=== PATIENT | male | born 1955 | race Caucasian/White ===

== ENCOUNTER 2018-03-06 13:35 | Inpatient (IN) ==
[2018-03-06] MEDS ORDERED: 0.9 % Sodium Chloride 1,000 ML IVC ONE ×2 (14:35→15:24)
[2018-03-06] MEDS ORDERED: Piperacillin/Tazobactam 3.375 GM in Water for inj. (sterile) 20 ML 20 ML IVP ONE (14:35)
[2018-03-06] MEDS ORDERED: methylPREDNISolone 125 MG/2 ML VIAL IVP ONE (14:40)
[2018-03-06] MEDS ORDERED: Ipratropium/Albuterol Neb 3 ML IH ONE (14:40)
--- NOTE | 2018-03-06 15:19 | Emergency Department Note ---
Disposition Clinical Impression: Acute exacerbation of chronic obstructive airways disease Disposition: Admitted As Inpatient Condition: Fair Time of Disposition: 21:08 General Adult HPI - General Chief complaint: ED Shortness of Breath/Dyspnea Stated complaint: difficulty breathing Time Seen by Provider: 03/06/18 13:46 Source: patient, family, EMS Limitations: no limitations Nursing Notes Reviewed: Yes Vital Signs Reviewed: Yes - History of Present Illness HPI Narrative: Male patient with a history of COPD presenting to the emergency department with a one-week history of productive cough. Dyspnea on exertion that is getting worse. Was placed on azithromycin for presumed pneumonia. Has been getting worse. He was placed on Levaquin and is not getting any better. He does report that his dyspnea on exertion is getting worse. He generally uses an incentive spirometer at home and states he can generally get into the [id number] range however he can not make it to 500 at this time. Currently uses albuterol for his COPD however he has been using more frequently than normal. Denies any chest pain. Does report a low-grade fever but reports it was only 99. No swelling to any of his extremities. He does report a productive cough with a clear sputum. He has not been on any steroids for a long period of time. Pain Scale: 0 - Related Data Home Medications Medication Instructions Recorded Confirmed Albuterol Neb [Proventil Neb] 2.5 mg IH Q4HR PRN 03/06/18 03/06/18 Albuterol Sulfate [Albuterol 2 puff IH Q4HR PRN 03/06/18 03/06/18 Inhaler] Ergocalciferol (VITAMIN D2) 50,000 unit PO QWEEK 03/06/18 03/06/18 [Vitamin D2] Fluticasone Propionate Nasal 1 spr NS DAILY 03/06/18 03/06/18 [Flonase] Fluticasone/Salmeterol [Advair 1 puff IH BID 03/06/18 03/06/18 250-50 Diskus] Ipratropium [place] 1 spr NS DAILY 03/06/18 03/06/18 MetroNIDAZOLE [Metrogel] 1 appl TP DAILY 03/06/18 03/06/18 Montelukast [Singulair] 10 mg PO HS 03/06/18 03/06/18 Omeprazole [PriLOSEC] 40 mg PO DAILY 03/06/18 03/06/18 Triamterene/HCTZ 37.5/25mg 1 tab PO DAILY 03/06/18 03/06/18 [Dyazide] Previous Rx's Medication Instructions Recorded levoFLOXacin [Levaquin] 500 mg PO DAILY #14 tablet 03/04/18 Allergies Allergy/AdvReac Type Severity Reaction Status Date / Time No Known Allergies Allergy Verified 03/06/18 17:07 All systems ED: reviewed and negative except as stated. Review of Systems: As Per HPI Constitutional: Reports: weakness. Denies: chills Cardiovascular: Reports: dyspnea on exertion. Denies: chest pain, palpitations , syncope Gastrointestinal: Reports: diarrhea. Denies: abdominal pain, nausea, vomiting Genitourinary: Denies: urgency, dysuria, frequency, hematuria Musculoskeletal: Denies: back pain, neck pain Integumentary: Denies: rash Neurological: Reports: weakness Past Medical History - Past Medical History Attestation: Yes The following information was validated with the patient. Source: patient Medical history: Reports: asthma, COPD, GERD, other Surgical history: Reports: orthopedic, other Psychiatric history: Reports: no psych history - Social History Smoking Status: Never smoker Smokeless Tobacco Status: No Alcohol use: Reports: occasionally Drug use: Reports: none Physical Exam - General Limitations: no limitations General appearance: alert, in no apparent distress - Head Head exam: atraumatic, normocephalic, normal inspection - Eye Eye exam: Present: normal appearance, PERRL, EOMI - ENT ENT exam: normal exam, normal oropharynx, mucous membranes moist - Neck Neck exam: Present: normal inspection, full ROM, trachea midline - Chest Chest inspection: Present: normal inspection, symmetric chest wall rise - Respiratory Respiratory exam: Present: respiratory distress (Patient is tachypneic.), other (Decreased lung sounds throughout) - Cardiovascular Cardiovascular exam: Present: tachycardia, normal heart sounds - Abdominal Exam Abdominal exam: Present: soft, Non-Tender. Absent: tenderness, distention, guarding, rebound, rigidity, organomegaly, Stevens's sign, Rovsing's sign, tenderness at McBurney's Point - Extremities Exam Extremities exam: Present: normal inspection, full ROM, normal capillary refill. Absent: tenderness, pedal edema, calf tenderness - Back Exam Back exam: Present: normal inspection, full ROM. Absent: tenderness - Neurological Exam Neurological exam: Present: alert, oriented X3 - Psychiatric Psychiatric exam: Present: normal affect, normal mood - Skin Skin exam: Present: warm, dry, intact, normal color. Absent: rash, cyanosis, diaphoresis Course Course Narrative: Patient does appear dyspneic on exam. He is tachypneic as well as tachycardic. He does meet SIRS criteria. We will place patient on IV vancomycin and Zosyn for failed outpatient therapy of pneumonia. We will also get a basic lab workup on patient provide him with IV fluids. He has no signs of edema to his extremities. We will provide him with a DuoNeb for his decreased lung sounds throughout. He does have upper airway secretions on auscultation. I do not appreciate any overt rhonchorous area. We will likely admitted to the hospital for failed outpatient therapy of pneumonia. Vital Signs Temperature 98.6 F 03/06/18 13:50 Pulse Rate 101 03/06/18 13:50 Respiratory Rate 24 03/06/18 13:50 Blood Pressure 149/89 03/06/18 13:50 O2 Sat by Pulse Oximetry 96 03/06/18 13:50 Temperature 98.1 F 03/06/18 19:01 Pulse Rate 103 03/06/18 19:01 Respiratory Rate 16 03/06/18 19:01 Blood Pressure 154/89 03/06/18 19:01 O2 Sat by Pulse Oximetry 90 03/06/18 19:01 Oxygen Delivery Oxygen Delivery Room Air Medical Decision Making - Medical Records Medical records reviewed: Yes I reviewed the patient's medical records. - Lab Data Lab results reviewed: Yes I reviewed the patient's lab results. Result diagrams: 03/06/18 14:35 03/06/18 14:35 Lab Results 03/06/18 03/06/18 03/06/18 Range/Units 14:35 14:35 14:35 WBC 6.3 (4.3-11.1) K/mcL RBC 5.03 (4.19-5.50) M/mcL Hgb 15.1 (12.9-16.9) g/dL Hct 46.6 (37.5-50.1) % MCV 92.6 (83.0-100.0) fL MCH 30.0 (28.0-33.3) pg MCHC 32.4 (31.6-35.5) g/dL RDW 12.6 (11.5-14.5) % Plt Count 141 (140-400) K/mcL MPV 9.9 (9.4-12.4) fL Immature Gran % 0.3 (0-4) % Seg Neutrophils % 72.3 % Lymphocytes % 14.6 % Monocytes % 10.0 % Eosinophils % 2.5 % Basophils % 0.3 % Neutrophils # 4.6 (1.6-8.9) K/mcL Lymphocytes # 0.9 (0.6-4.6) K/mcL Monocytes # 0.6 (0.0-1.3) K/mcL Eosinophils # 0.2 (0.0-0.6) K/mcL Basophils # 0.0 (0.0-0.2) K/mcL PT 11.7 (9.4-12.1) Seconds INR 1.0 APTT 30.1 (26.0-36.0) Seconds Sodium 136 (136-145) mEq/L Potassium 4.4 (3.5-5.1) mEq/L Chloride 98 (98-107) mEq/L Carbon Dioxide 22 L (23-29) mEq/L BUN 8 (8-23) mg/dL Creatinine 0.43 L (0.70-1.30) mg/dL Est GFR ( Amer) > 60 (> 60) Est GFR (Non-Af Amer) > 60 (> 60) BUN/Creatinine Ratio 19 (6-26) Glucose 71 (70-105) mg/dL Calculated Osmolality 279 L (280-300) Lactic Acid (0.5-2.2) mmol/L Calcium 9.6 (8.6-10.3) mg/dL Phosphorus 3.1 (2.7-4.5) mg/dL Magnesium 1.7 (1.6-2.6) mg/dL Total Bilirubin 0.6 (0.3-1.0) mg/dL Direct Bilirubin 0.1 (0.0-0.2) mg/dL Indirect Bilirubin 0.5 (0.0-1.2) mg/dL AST 62 H (13-39) Units/L ALT 29 (7-52) Units/L Alkaline Phosphatase 58 (34-104) Units/L Troponin I < 0.03 (< 0.04) ng/mL Serum Total Protein 7.6 (6.4-8.9) g/dL Albumin 4.0 (3.5-5.7) g/dL Globulin 3.6 H (2.4-3.5) g/dL Albumin/Globulin Ratio 1.1 (1.1-2.2) Urine Color (Yellow) Urine Clarity (Clear) Urine pH (5.0-8.0) pH Units Ur Specific [place] (1.010-1.025) Urine Protein (Neg-Trace) mg/dL Urine Glucose (UA) (Normal) mg/dL Urine Ketones (Negative) mg/dL Urine Blood (Negative) Urine Nitrite (Negative) Urine Bilirubin (Negative) Urine Urobilinogen (Normal) mg/dL Ur Leukocyte Esterase (Negative) Urine Microscopic RBC (0-3) per hpf Urine Microscopic WBC (0-3) per hpf Ur Squamous Epith Cells (None-Few) per lpf Urine Bacteria (None-Few) per hpf Hyaline Casts (None-Few) per lpf Ur Culture Indicated? (NO) 03/06/18 03/06/18 Range/Units 15:11 15:30 WBC (4.3-11.1) K/mcL RBC (4.19-5.50) M/mcL Hgb (12.9-16.9) g/dL Hct (37.5-50.1) % MCV (83.0-100.0) fL MCH (28.0-33.3) pg MCHC (31.6-35.5) g/dL RDW (11.5-14.5) % Plt Count (140-400) K/mcL MPV (9.4-12.4) fL Immature Gran % (0-4) % Seg Neutrophils % % Lymphocytes % % Monocytes % % Eosinophils % % Basophils % % Neutrophils # (1.6-8.9) K/mcL Lymphocytes # (0.6-4.6) K/mcL Monocytes # (0.0-1.3) K/mcL Eosinophils # (0.0-0.6) K/mcL Basophils # (0.0-0.2) K/mcL PT (9.4-12.1) Seconds INR APTT (26.0-36.0) Seconds Sodium (136-145) mEq/L Potassium (3.5-5.1) mEq/L Chloride (98-107) mEq/L Carbon Dioxide (23-29) mEq/L BUN (8-23) mg/dL Creatinine (0.70-1.30) mg/dL Est GFR ( Amer) (> 60) Est GFR (Non-Af Amer) (> 60) BUN/Creatinine Ratio (6-26) Glucose (70-105) mg/dL Calculated Osmolality (280-300) Lactic Acid 1.4 (0.5-2.2) mmol/L Calcium (8.6-10.3) mg/dL Phosphorus (2.7-4.5) mg/dL Magnesium (1.6-2.6) mg/dL Total Bilirubin (0.3-1.0) mg/dL Direct Bilirubin (0.0-0.2) mg/dL Indirect Bilirubin (0.0-1.2) mg/dL AST (13-39) Units/L ALT (7-52) Units/L Alkaline Phosphatase (34-104) Units/L Troponin I (< 0.04) ng/mL Serum Total Protein (6.4-8.9) g/dL Albumin (3.5-5.7) g/dL Globulin (2.4-3.5) g/dL Albumin/Globulin Ratio (1.1-2.2) Urine Color Yellow (Yellow) Urine Clarity Cloudy A (Clear) Urine pH 5.5 (5.0-8.0) pH Units Ur Specific [place] 1.018 (1.010-1.025) Urine Protein Trace (Neg-Trace) mg/dL Urine Glucose (UA) Normal (Normal) mg/dL Urine Ketones >=160 H (Negative) mg/dL Urine Blood Negative (Negative) Urine Nitrite Negative (Negative) Urine Bilirubin Negative (Negative) Urine Urobilinogen Normal (Normal) mg/dL Ur Leukocyte Esterase Negative (Negative) Urine Microscopic RBC 3-5 H (0-3) per hpf Urine Microscopic WBC 0-3 (0-3) per hpf Ur Squamous Epith Cells Moderate H (None-Few) per lpf Urine Bacteria None Seen (None-Few) per hpf Hyaline Casts None Seen (None-Few) per lpf Ur Culture Indicated? NO (NO) - Radiology Data Radiology results reviewed: Yes I reviewed the patient's radiology results. Chest X-Ray 03/06/18 14:36 IMPRESSION: Stable portable study. D/ / Radha Bhatt Cha, MD / Radha Bhatt Cha, MD Interpreting Provider: Radha Bhatt Cha, MD - EKG Data EKG #1 EKG attestation: Yes I reviewed and interpreted this EKG. EKG results narrative: Normal sinus rhythm at a rate of 99. RI interval is 151. QRS duration is 82. QT is 331. QTC is 425. No signs of acute ischemia. No significant change from previous EKG dated 04/12/2014. Attestation Statement - Attestation Attestation: I examined this patient and my medical decision-making was reviewed with the Resident Physician, Dr. Kunz. I agree with the documented findings, disposition and treatment plan as described except to the extent set forth below. Patient is a 62-year-old white male with a history of COPD non-oxygen dependent who presents the emergency department with a one-week history of nasal congestion productive cough with yellowish sputum and gradually worsening shortness of breath. 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 He continued this and then was seen at the urgent care on Tuesday stating his symptoms were worsening and was prescribed Levaquin. Patient by today was having no improvement feeling worsening with shortness of breath gradually is weakness and fatigue. Patient denies a chest pain pressure or heaviness, no posttussive emesis or hemoptysis. I agree with patient's physical exam findings as documented. Patient's vital signs are stable on arrival and he has some mild conversational dyspnea but not hypoxic on room air. Patient had breathing treatments and steroids initiated IV as well as blood culture laboratory evaluation and chest x-ray. Patient was started on empiric anabiotic therapy for outpatient treatment failure after 2 rounds of antibiotics. Patient denies any recent travel or concerning exposures. At this time we will admit the patient for acute exacerbation of COPD we are still awaiting a chest x-ray to rule out possible pneumonia. Chest x-ray result is negative for any infiltrate or abnormal. Patient remains hemodynamically stable at this time and case was discussed with the hospitalist who accepted patient for admission.
[2018-03-06 15:27] LABS: Basophils % 0.3 %; Eosinophils # 0.2 K/mcL (0.0-0.6); Eosinophils % 2.5 %; Hematocrit 46.6 % (37.5-50.1); Hemoglobin 15.1 g/dL (12.9-16.9); Immature Granulocytes % 0.3 % (0-4); Lymphocytes # 0.9 K/mcL (0.6-4.6); Lymphocytes % 14.6 %; Mean Corpuscular HGB Conc 32.4 g/dL (31.6-35.5); Mean Corpuscular Volume 92.6 fL (83.0-100.0); Mean Platelet Volume 9.9 fL (9.4-12.4); Monocytes # 0.6 K/mcL (0.0-1.3); Neutrophils # 4.6 K/mcL (1.6-8.9); Platelet Count 141 K/mcL (140-400); Red Blood Count 5.03 M/mcL (4.19-5.50); Red Cell Distribution Width 12.6 % (11.5-14.5); Segmented Neutrophils % 72.3 %
[2018-03-06 15:33] LABS: Prothrombin Time 11.7 Seconds (9.4-12.1)
[2018-03-06 15:36] LABS: Activated Partial Thrombo Time 30.1 Seconds (26.0-36.0)
[2018-03-06] MEDS ORDERED: Piperacillin/Tazobactam 3.375 GM VIAL ONE (15:40)
[2018-03-06 15:41] LABS: Bilirubin,Urine Negative (Negative); Blood,Urine Negative (Negative); Clarity,Urine Cloudy (Clear); Color,Urine Yellow (Yellow); Glucose,Urine (UA) Normal (Normal); Ketones,Urine >=160 mg/dL (Negative); Leukocyte Esterase,Urine Negative (Negative); Nitrite,Urine Negative (Negative); PH,Urine 5.5 pH Units (5.0-8.0); Protein,Urine Trace mg/dL (Neg-Trace); Specific Gravity,Urine 1.018 (1.010-1.025); Urobilinogen,Urine Normal (Normal)
[2018-03-06] MEDS ORDERED: 0.9 % Sodium Chloride Mini Bag 100 ML ONE (15:41)
[2018-03-06 15:44] LABS: Bacteria,Urine None Seen per hpf (None-Few); Hyaline Casts,Urine None Seen per lpf (None-Few); Squamous Epithelial Cell,Urine Moderate per lpf (None-Few); WBC,Urine 0-3 per hpf (0-3)
[2018-03-06 15:47] LABS: Troponin I < 0.03 ng/mL (< 0.04)
[2018-03-06 15:48] LABS: Alanine Aminotransferase 29 Units/L (7-52); Albumin/Globulin Ratio 1.1 (1.1-2.2); Alkaline Phosphatase 58 Units/L (34-104); Aspartate Amino Transferase 62 Units/L (13-39); BUN/Creatinine Ratio 19 (6-26); Bilirubin,Direct 0.1 mg/dL (0.0-0.2); Bilirubin,Indirect 0.5 mg/dL (0.0-1.2); Bilirubin,Total 0.6 mg/dL (0.3-1.0); Blood Urea Nitrogen 8 mg/dL (8-23); Calcium 9.6 mg/dL (8.6-10.3); Carbon Dioxide 22 mEq/L (23-29); Chloride 98 mEq/L (98-107); Globulin 3.6 g/dL (2.4-3.5); Glucose 71 mg/dL (70-105); Magnesium 1.7 mg/dL (1.6-2.6); Osmolality,Calculated 279 (280-300); Phosphorous 3.1 mg/dL (2.7-4.5); Potassium 4.4 mEq/L (3.5-5.1); Sodium 136 mEq/L (136-145); Total Protein 7.6 g/dL (6.4-8.9); eGFR For Non-African Americans > 60 (> 60)
[2018-03-06] MEDS ORDERED: Acetaminophen 325 MG TABLET PO PRN (17:52)
[2018-03-06] MEDS ORDERED: Albuterol 2.5 MG/3 ML NEBULIZER IH PRN (17:53)
[2018-03-06] MEDS ORDERED: Naloxone 0.4 MG/ML INJ IVP PRN (17:54)
[2018-03-06] MEDS ORDERED: Azithromycin 500 MG in D5% in Water 250 ML IVPB SCH (18:00)
--- NOTE | 2018-03-06 18:06 | Internal Med History&Physical ---
Date of Encounter: 03/06/18 Time of Encounter: 18:02 Internal Medicine - H&P: HPI Chief complaint: Shortness of Breath Admitted From: Home Plans for Post Hospital Care: Home History of present illness: Mr. Rangel is a 62 year old male who presents to the emergency department with chief complaint of shortness of breath. Patient states that for the past several days he has been feeling short of breath and developing a productive cough. The patient was started on azithromycin initially as out patient and did not have resolution of symptoms. The patient then visited an urgent care where chest x-ray was performed with questionable pneumonia and the patient was given Levaquin. The patient states that he briefly improved at that point however symptoms worsened last night and this morning and the patient's shortness of breath distress likely worse. Patient states that his cough and sputum production is increasing. Patient states that this morning he was so short of breath he could not catch his breath or move around which prompted them to call the emergency services. In the emergency department the patient was given IV steroids as well as IV antibiotics Empirically for pneumonia and presumed copd exacerbation. The patient's symptoms did improve however he remains somewhat short of breath. Patient and state that every year around this time he developed severe pneumonia frequently requiring hospitalization. They state that this feels very similar to prior episodes. Patient denies any recent travel or sick contacts. Patient denies any chest pain, abdominal pain, nausea, vomiting, diarrhea. Patient denies any objective fevers but feels very cold recently. Patient denies any neck pain vision disturbances or headache. Patient will be admitted for acute exacerbation of COPD as well as pneumonia with failed outpatient treatment. Past Med Surg Social Fam HX - Past Medical History Medical history: asthma, COPD, GERD, other Additional medical history: DISH (bone calcifications develop along ligaments, joints), hiatal hernia Psychiatric history: no psych history - Past Surgical History Surgical History: orthopedic, other Additional surgical history: achilles tendon (right) wrist (left), back surgeries (lumbar) - Social History Smoking Status: Never smoker Smokeless Tobacco Status: No Alcohol use: occasionally Drug use: none Internal Medicine - H&P: Meds levoFLOXacin [Levaquin] 500 mg PO DAILY #14 tablet 03/04/18 [Rx] Albuterol Neb [Proventil Neb] 2.5 mg IH Q4HR PRN 03/06/18 [History] Albuterol Sulfate [Albuterol Inhaler] 2 puff IH Q4HR PRN 03/06/18 [History] Ergocalciferol (VITAMIN D2) [Vitamin D2] 50,000 unit PO QWEEK 03/06/18 [History] Fluticasone Propionate Nasal [Flonase] 1 spr NS DAILY 03/06/18 [History] Fluticasone/Salmeterol [Advair 250-50 Diskus] 1 puff IH BID 03/06/18 [History] Ipratropium [place] 1 spr NS DAILY 03/06/18 [History] MetroNIDAZOLE [Metrogel] 1 appl TP DAILY 03/06/18 [History] Montelukast [Singulair] 10 mg PO HS 03/06/18 [History] Omeprazole [PriLOSEC] 40 mg PO DAILY 03/06/18 [History] Triamterene/HCTZ 37.5/25mg [Dyazide] 1 tab PO DAILY 03/06/18 [History] 3 Allergy/AdvReac Type Severity Reaction Status Date / Time No Known Allergies Allergy Verified 03/06/18 17:07 All Systems PM: A 10-system review of systems was performed and is negative for pertinent findings except as documented above in the HPI. Review of systems: 10 point review of systems is obtained and is otherwise negative other than described in history of present illness - Constitutional Vitals: Temp Pulse Resp BP Pulse Ox 98.6 F 94 22 141/80 95 03/06/18 13:50 03/06/18 16:58 03/06/18 16:58 03/06/18 16:58 03/06/18 16:58 Exam: Constitutional: No acute distress, Alert Psych: AAO x 3 HEENT: NCAT, EOMI Neck: supple, no JVD Cardio: mildly tachycardic in 90s, +s1s2, no murmurs/rubs/gallops, no JVD Resp: inspiratory and expiratory wheezing with bilateral ronchi worse in right lower lung tineo Abd: soft, non tender/non distended, positive bowel sounds, no gaurding/reboud/ ridgitity Extremities: no clubbing/cyanosis/edema appreciated Neuro: no focal deficits appreciated Lymph: no cervical/supraclavicular adenopahty apprecitated Internal Med - H&P Results - Labs CBC & Chem 7: 03/06/18 14:35 03/06/18 14:35 - Assessment and plan (1) Community acquired bacterial pneumonia Current Visit: Yes Status: Acute Assessment and plan: -suspect bacterial pneumonia depsite the lack of clear consolidation on radiograph -initial improvement with outpatient antibiotics with supsequent worsening -azithromycin for atypical coverage -zosyn for escalation of outpatient treatment -received one dose of vanco in ED; dobut need to continue unless clinical condition worsens -obtain sputum sample -check urine legionella and strep pneumo antigen -check RIP -incentive spirometer -pt mildly tachycardic likely 2/2 infection with respiratory distress; doubt PE currently however if pt does not improve will consider CTA to eval for consolidation and rule out PE (2) Acute exacerbation of chronic obstructive pulmonary disease (COPD) Current Visit: Yes Status: Acute Assessment and plan: -Hx of well controlled copd however now with worsening shortness of breath with extensive wheezing improved with steroids -likely exacerbated by current respiratory tract infection -continue iv steroids -bronchodialators -advair -oxygen if needed for satuation of 88% or above (3) Failure of outpatient treatment Current Visit: Yes Status: Acute Assessment and plan: -Failure of 2 antibiotics for pneumonia within the past week with worsening of symptoms -necessitates admission to prevent further morbidity (4) SIRS (systemic inflammatory response syndrome) Current Visit: Yes Status: Acute Assessment and plan: -Meets SIRS criteria with tachycardia and tachypnea -monitor for devleopment of sepsis -low suspicion for sepsis currently (5) DISH (diffuse idiopathic skeletal hyperostosis) Current Visit: No Status: Acute Assessment and plan: -chronic disease -continue outpatient workup and treatment (6) GERD (gastroesophageal reflux disease) Current Visit: Yes Status: Acute Assessment and plan: hx of barretts esophagus -continue ppi Qualifiers: Esophagitis presence: with esophagitis Qualified Code(s): K21.0 - Gastro- esophageal reflux disease with esophagitis (7) DVT prophylaxis Current Visit: Yes Status: Acute Assessment and plan: sub q heparin - Time Spent With Patient Total time spent is greater than 50% in coordination of care (as documented) at patient's floor/unit and/or counseling patient: Greater than 35 minutes
[2018-03-06 21:40] LABS: Adenovirus Not Detected (Not Detect); Bordetella Pertussis Not Detected (Not Detect); Chlamydophila pneumoniae Not Detected (Not Detect); Coronavirus 229E Not Detected (Not Detect); Coronavirus HKU1 Not Detected (Not Detect); Coronavirus NL63 Not Detected (Not Detect); Coronavirus OC43 Not Detected (Not Detect); Human Metapneumovirus Not Detected (Not Detect); Human Rhinovirus/Enterovirus Not Detected (Not Detect); Influenza A Subtype 2009 H1 Not Detected (Not Detect); Influenza A Untypeable Not Detected (Not Detect); Influenza B Not Detected (Not Detect); Mycoplasma pneumoniae Not Detected (Not Detect); Parainfluenza Virus 1 Not Detected (Not Detect); Parainfluenza Virus 2 DETECTED (Not Detect); Parainfluenza Virus 3 Not Detected (Not Detect); Parainfluenza Virus 4 Not Detected (Not Detect); Respiratory Syncytial Virus Not Detected (Not Detect)
[2018-03-06] MEDS: 0.9 % Sodium Chloride 1,000 ML IVC SCH (22:06)
[2018-03-06] MEDS: Budesonide/Formoterol 80/4.5 MDI IH SCH (22:23)
[2018-03-07] MEDS: *HR* Heparin 5,000 UNIT/ML VIAL SQ SCH ×3 (01:06→15:24)
[2018-03-07] MEDS: MethylPREDNISolone 40 MG/ML VIAL IVP SCH ×3 (01:06→15:24)
[2018-03-07] MEDS: Piperacillin/Tazobactam 3.375 GM in 0.9 % Sodium Chloride Mini Bag 100 ML IVPB SCH ×2 (01:07→10:13)
[2018-03-07 05:37] LABS: Hematocrit 43.2 % (37.5-50.1); Hemoglobin 14.2 g/dL (12.9-16.9); Lymphocytes # 0.3 K/mcL (0.6-4.6); Lymphocytes % 9.9 %; Mean Corpuscular HGB Conc 32.9 g/dL (31.6-35.5); Mean Corpuscular Hemoglobin 30.3 pg (28.0-33.3); Mean Corpuscular Volume 92.3 fL (83.0-100.0); Mean Platelet Volume 10.7 fL (9.4-12.4); Monocytes # 0.1 K/mcL (0.0-1.3); Neutrophils # 2.6 K/mcL (1.6-8.9); Platelet Count 133 K/mcL (140-400); Red Blood Count 4.68 M/mcL (4.19-5.50); Red Cell Distribution Width 12.6 % (11.5-14.5); Segmented Neutrophils % 88.1 %
[2018-03-07 05:56] LABS: BUN/Creatinine Ratio 19 (6-26); Blood Urea Nitrogen 7 mg/dL (8-23); Calcium 8.7 mg/dL (8.6-10.3); Carbon Dioxide 23 mEq/L (23-29); Chloride 101 mEq/L (98-107); Glucose 145 mg/dL (70-105); Osmolality,Calculated 281 (280-300); Sodium 135 mEq/L (136-145); eGFR For Non-African Americans > 60 (> 60)
[2018-03-07] MEDS ORDERED: IPRATROPIUM BROMIDE NS SCH (09:00)
[2018-03-07] MEDS: Fluticasone Propionate Nasal 50 MCG/SPRAY BOTTLE NS SCH (09:06)
[2018-03-07] MEDS: 0.9 % Sodium Chloride 1,000 ML IVC SCH ×2 (09:06→14:09)
--- NOTE | 2018-03-07 09:56 | Internal Med Progress Note ---
Hospitalist Progress Note - Encounter Date of Encounter: 03/07/18 Time of Encounter: 09:46 - Subjective Interval History: Seen at bedside today, no acute changes. Denies any shortness of breath at rest , but continues to report some with activity. Otherwise he reports that he feels much better today - Exam Vitals: Temp Pulse Resp BP Pulse Ox 97.7 F 88 16 125/80 95 03/07/18 06:27 03/07/18 06:27 03/07/18 06:27 03/07/18 06:03/07/18 09:00 Exam: PHYSICAL EXAMINATION: GENERAL: The patient is an ill appearing male in no apparent distress. He is alert and oriented x3. HEENT: Head is normocephalic and atraumatic. Extraocular muscles are intact. Pupils are equal, round, and reactive to light and accommodation. Nares appeared normal. Mouth is well hydrated and without lesions. Mucous membranes are moist. Posterior pharynx clear of any exudate or lesions. NECK: Supple. No carotid bruits. No lymphadenopathy or thyromegaly. LUNGS: Clear/diminished with scattered rhonchi to auscultation AP&L HEART: Regular rate and rhythm, s1, s2 without murmur rubs or gallops. ABDOMEN: Soft, nontender, and nondistended. Positive bowel sounds. No hepatosplenomegaly was noted. EXTREMITIES: Without any cyanosis, clubbing, rash, lesions or edema. SKIN: No ulceration or induration present. - Assessment and Plan (1) Community acquired bacterial pneumonia Current Visit: Yes Status: Acute Assessment and Plan: Presented with dyspnea; no obvious consolidation on radiograph; does not appear to be PNA found to have parainfluenza 2 sputum cultures negative strep and legionella antigen negative blood culture pending tachycardia resolved, no tachypnea leukopenia WBC 2.9 with LRI- Denies history of immunocompromise 03/07/18- Clinically, improving, no dyspnea at rest, reporting mild dyspnea with activity. lungs clear/dim with scattered rhonchi - d/c ABX - symptomatic treatment - daily labs - ANALILIA duonebs - cont iv steroids - incentive spirometer (2) Acute exacerbation of chronic obstructive pulmonary disease (COPD) Current Visit: Yes Status: Acute Assessment and Plan: 2/2 LRI/Bronchitis above (3) Failure of outpatient treatment Current Visit: Yes Status: Ruled-out (4) SIRS (systemic inflammatory response syndrome) Current Visit: Yes Status: Resolved Assessment and Plan: -Meets SIRS criteria with tachycardia and tachypnea -low suspicion for sepsis currently 03/07-tachycardia and tachypnea resolved (5) DISH (diffuse idiopathic skeletal hyperostosis) Current Visit: No Status: Acute Assessment and Plan: per hx; chronic -continue outpatient workup and treatment (6) GERD (gastroesophageal reflux disease) Current Visit: Yes Status: Acute Assessment and Plan: hx of barretts esophagus -cont ppi (7) Bronchitis Current Visit: No Status: Acute Assessment and Plan: viral bronchitis see above (8) DVT prophylaxis Current Visit: Yes Status: Acute Assessment and Plan: cont sub q heparin - Time Spent with Patient Total time spent is greater than 50% in coordination of care (as documented) at patient's floor/unit and/or counseling patient: less than 15 minutes Plan of Care Discussed with: patient Internal Medicine: Result - Labs CBC & Chem 7: 03/07/18 03:41 03/07/18 03:41 Labs: Short CBC 03/07/18 Range/Units 03:41 WBC 2.9 L D (4.3-11.1) K/mcL Hgb 14.2 (12.9-16.9) g/dL Hct 43.2 (37.5-50.1) % Plt Count 133 L (140-400) K/mcL Neutrophils # 2.6 (1.6-8.9) K/mcL BMP 03/07/18 03:41 Sodium 135 L Potassium 4.0 Chloride 101 Carbon Dioxide 23 BUN 7 L Creatinine 0.37 L Glucose 145 H Calcium 8.7 - ABG Interpretation ABG results: PT/INR, D-dimer PT 11.7 Seconds (9.4-12.1) 03/06/18 14:35 Consult Discharge Plan - Plan Referrals: Misael Patrick MD [Primary Care Provider] - (6) GERD (gastroesophageal reflux disease) Qualifiers: Esophagitis presence: with esophagitis Qualified Code(s): K21.0 - Gastro- esophageal reflux disease with esophagitis
[2018-03-07] MEDS: Budesonide/Formoterol 80/4.5 MDI IH SCH ×2 (10:27→20:13)
[2018-03-07] MEDS: Ipratropium/Albuterol Neb 3 ML IH PRN ×2 (15:08→22:06)
[2018-03-08] MEDS: *HR* Heparin 5,000 UNIT/ML VIAL SQ SCH ×2 (00:58→08:44)
[2018-03-08] MEDS: MethylPREDNISolone 40 MG/ML VIAL IVP SCH ×2 (00:58→08:44)
[2018-03-08 06:52] VITALS: BP 153/82
[2018-03-08] MEDS: Fluticasone Propionate Nasal 50 MCG/SPRAY BOTTLE NS SCH (08:44)
[2018-03-08] MEDS: Ipratropium/Albuterol Neb 3 ML IH PRN (09:39)
[2018-03-08] MEDS ORDERED: Budesonide/Formoterol 80/4.5 MDI IH SCH (10:00)
--- NOTE | 2018-03-08 10:04 | Discharge Summary ---
- NOTES TO OUTPATIENT PROVIDER Notes to Outpatient Provider: Patient needs a follow-up CBC to trend his leukopenia. Most likely a result of paraInfluenza but will need to follow-up within a week. Also will benefit from a follow-up pulmonary and allergy immunology appointment. Discharging on a prolonged steroid taper at this point. Date of Encounter: 03/08/18 Time of Encounter: 10:01 - Discharge Diagnosis (1) Parainfluenza infection Priority: Primary Status: Acute (2) Bronchitis Priority: Secondary Status: Acute (3) Community acquired bacterial pneumonia Priority: Secondary Status: Acute (4) Acute exacerbation of chronic obstructive pulmonary disease (COPD) Priority: Secondary Status: Acute (5) Failure of outpatient treatment Priority: Secondary Status: Ruled-out (6) SIRS (systemic inflammatory response syndrome) Priority: Secondary Status: Resolved (7) DISH (diffuse idiopathic skeletal hyperostosis) Priority: Secondary Status: Acute (8) GERD (gastroesophageal reflux disease) Priority: Secondary Status: Acute Qualifiers: Esophagitis presence: with esophagitis Qualified Code(s): K21.0 - Gastro- esophageal reflux disease with esophagitis (9) DVT prophylaxis Priority: Secondary Status: Acute Hospital course: Mr. Rangel is a 62 year old male with past medical history of COPD who was admitted for shortness of breath, continued upper and lower respiratory tract symptoms despite antibiotic treatment as an outpatient. He was diagnosed with COPD exacerbation as well as parainfluenza bronchitis. He was briefly on antibiotic therapy but sputum cultures have been negative for any bacterial growth. Her cultures have so far been negative as well and his antibiotics have been discontinued. He improved significantly with IV steroids and is currently on room air. 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 I have recommended that he follow-up with both of those specialists in addition to his primary care physician within 2-4 weeks' time. He did have a little bit of a dip in his white count today which most likely is from his viral infection but I have recommended a repeat CBC within a week and follow with her primary care physician. I will also written a prolonged steroid taper and given him 2 refills for the same. Discharge discussed with: patient, nurse - Time Spent with Patient Total time spent providing and/or coordinating discharge services: Greater than 30 minutes - Discharge Medications Home Medications: Albuterol Neb [Proventil Neb] 2.5 mg IH Q4HR PRN 03/06/18 [History] Albuterol Sulfate [Albuterol Inhaler] 2 puff IH Q4HR PRN 03/06/18 [History] Ergocalciferol (VITAMIN D2) [Vitamin D2] 50,000 unit PO QWEEK 03/06/18 [History] Fluticasone Propionate Nasal [Flonase] 1 spr NS DAILY 03/06/18 [History] Fluticasone/Salmeterol [Advair 250-50 Diskus] 1 puff IH BID 03/06/18 [History] Ipratropium [place] 1 spr NS DAILY 03/06/18 [History] Montelukast [Singulair] 10 mg PO HS 03/06/18 [History] Omeprazole [PriLOSEC] 40 mg PO DAILY 03/06/18 [History] Triamterene/HCTZ 37.5/25mg [Dyazide] 1 tab PO DAILY 03/06/18 [History] Allergies/Adverse Reactions: 3 Allergy/AdvReac Type Severity Reaction Status Date / Time No Known Allergies Allergy Verified 03/06/18 17:07 Date of admission: 03/06/18 17:54 Primary care physician: Misael Patrick MD - Constitutional Vitals: Temp Pulse Resp BP Pulse Ox 97.6 F 76 17 153/82 96 03/08/18 06:51 03/08/18 06:51 03/08/18 09:40 03/08/18 06:51 03/08/18 09:40 Exam: GENERAL: Alert, no distress, cooperative EYES: PERRLA, EOMI EARS: External ears normal, canals clear OROPHARYNX: Lips, mucosa, and tongue normal. Teeth and gums normal. Oropharynx normal. NECK: No jugulovenous distention, No carotid bruits, Carotid pulse normal contour, Supple LUNGS: Lungs clear to auscultation, Good diaphragmatic excursion CARDIAC: Normal S1 and S2; no rubs, murmurs, or gallops ABDOMEN: Abdomen soft, non-tender, BS normal, No masses or organomegaly EXTREMITIES: Extremities normal, no deformities, edema, clubbing or skin discoloration. Good capillary refill., No ulcers NEURO: Gait normal. Reflexes normal and symmetric. Sensation grossly intact, Cranial nerves II-XII intact PULSES: 2+ radial, 2+ carotid Rest of the exam is non contributory - Patient Status Disposition: Home, Self-Care Functional capacity at discharge: independent ambulation Overall status at discharge: patient is back to baseline - Discharge Instructions Instructions: Chronic Obstructive Pulmonary Disease (DC) Follow Up With: Misael Patrick MD [Primary Care Provider] - - Diet and Activity Activity: increase activity as tolerated Diet: advance to your usual diet
[2018-03-08] MEDS ORDERED: predniSONE 20 MG TABLET PO SCH (16:00)
--- NOTE | 2018-03-09 23:32 | Electrocardiograph Report ---
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
== END 2018-03-08 11:21 | disposition home or self-care (01) | DRG 194 ==
LOC: EMEROOARM 13:35 → 3BNU 13:35 → SUATTDRO 17:54 → 2ANU 03-07 12:11
PROVIDERS: ADMIT Student in an Organized Health Care Education/Training Program; ATTEND Internal Medicine